=== PATIENT | female | born 1940 | race Caucasian/White ===

== ENCOUNTER → 2016-09-28 | Outpatient (CLI) | payer OTHER | LOC: FIMAGING 13:19 | PROVIDERS: ATTEND Family Medicine | DX: J45.909 Unspecified asthma, uncomplicated (principal) ==

== ENCOUNTER 2017-09-16 15:32 | Emergency (ER) | payer OTHER ==
[2017-09-16 16:26] LABS: PLATELET COUNT 255 10^3/uL (150-400)
--- NOTE | 2017-09-16 16:53 | CPEKG ---
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
--- NOTE | 2017-09-16 17:10 | EDPHY ---
H & P Stated Complaint: HTN from PCP Time Seen by Provider: 09/16/17 15:57 HPI/ROS: CHIEF COMPLAINT: Elevated blood pressure HISTORY OF PRESENT ILLNESS: 77-year-old female with hypertension and Meniere's disease presents with elevated blood pressure. Blood pressure was running high today with a systolic blood pressure in the 200s. She took an extra atenolol at 1:00 p.m.. She then called her primary care physician's office and they sent her to the emergency department for evaluation. She has a history of Meniere's disease and is feeling dizzy with head movement for the past 2 days. Similar to prior symptoms with Meniere's disease. She took meclizine earlier today. Otherwise asymptomatic; no headache, chest pain, SOB, weakness/numbness. REVIEW OF SYSTEMS: complete 10 point ROS negative except at noted in the HPI - Personal History Current Tetanus/Diphtheria Vaccine: No Current Tetanus Diphtheria and Acellular Pertussis (TDAP): No - Medical/Surgical History Hx Asthma: No Hx Chronic Respiratory Disease: No Hx Diabetes: No Hx Cardiac Disease: No Hx Renal Disease: No Hx Cirrhosis: No Hx Alcoholism: No Hx HIV/AIDS: No Hx Splenectomy or Spleen Trauma: No Other PMH: HTN, - Social History Smoking Status: Never smoked Additional Social History: PCP: Dr. Jones - Physical Exam Exam: General Appearance: Alert, pleasant Eyes: Pupils equal and round, no conjunctival pallor or injection, horizontal nystagmus, fast component to the right ENT, Mouth: Mucous membranes moist Neck: Normal inspection, no bruit Respiratory: Lungs are clear to auscultation Cardiovascular: Regular rate and rhythm Gastrointestinal: Abdomen is soft and nontender Neurological: Alert, oriented x3, cranial nerves II through XII intact, motor 5 /5, sensory intact to light touch, normal gait Skin: Warm and dry Extremities: Normal inspection, nontender Psychiatric: Anxious Constitutional: Initial Vital Signs Temperature (C) 36.6 C 09/16/17 15:38 Heart Rate 66 09/16/17 15:38 Respiratory Rate 16 09/16/17 15:38 Blood Pressure 213/97 H 09/16/17 15:38 O2 Sat (%) 90 L 09/16/17 15:38 O2 Delivery Mode Room Air Allergies/Adverse Reactions: No Known Allergies Allergy (Unverified 09/16/17 15:37) Home Medications: Medication Instructions Recorded Atenolol 09/16/17 Medical Decision Making - Diagnostics EKG Interpretation: EKG interpreted by me reveals sinus rhythm, rate 56, inferior Q-waves, inverted T-waves in leads V1 through V3. ED Course/Re-evaluation: This patient presents with elevated blood pressure, 213/97. She is quite concerned that she is having a stroke, although she is not having any new neuro symptoms. Vertigo is typical for her and not a new symptom. I reassured her that there is no evidence of stroke. After reassurance alone, repeat blood pressure 165/89. Repeat BP's remain in this lower range. 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 I feel that she is safe and stable for discharge home. She will take an extra atenolol if her blood pressure is running high this evening. She will follow up with her primary care physician tomorrow for recheck. Differential Diagnosis: Differential diagnosis includes though is not limited to hypertensive emergency , such as acute coronary syndrome, CVA, acute renal failure - Data Points Laboratory Results: Laboratory Results 09/16/17 15:54 09/16/17 15:54 Departure - Departure Disposition: Home, Routine, Self-Care Clinical Impression: Hypertension Qualifiers: Hypertension type: essential hypertension Qualified Code(s): I10 - Essential ( primary) hypertension Meniere disease Qualifiers: Laterality: unspecified laterality Qualified Code(s): H81.09 - Meniere's disease, unspecified ear Condition: Good Instructions: Meniere Disease (ED), Hypertension (ED) Additional Instructions: If your blood pressure is running high, you may take an extra atenolol tonight. Referrals: NAZ JONES [Primary Care Provider] - As per Instructions
[2017-09-16 17:37] VITALS: BP 185/69
== END 2017-09-16 17:34 | disposition home or self-care (01) ==
DX: I10 Essential (primary) hypertension (principal); H81.09 Meniere's disease, unspecified ear